=== PATIENT | female | born 1960 | race Caucasian/White ===

== ENCOUNTER 2021-12-29 13:28 | Outpatient (CLI) | payer OTHER, SELFPAY ==
[2021-12-29 18:12] LABS: Albumin* 4.7 g/dL (3.3-5.0); Chloride* 99 mmol/L (96-114)
[2021-12-29 18:13] LABS: Potassium* 4.4 mmol/L (3.6-5.1); Sodium* 138 mmol/L (135-149)
[2021-12-29 18:15] LABS: Alkaline Phosphatase* 122 U/L (40-150); Aspartate Amino Transferase* 35 U/L (12-35); Bilirubin Total* 0.1 mg/dL (0.1-1.5); Blood Urea Nitrogen* 16 mg/dL (7-30); Carbon Dioxide* 24 mmol/L (20-32); Cholesterol* 200 mg/dL (90-199); Creatinine* 0.5 mg/dL (0.5-1.5); Estimated Glomerular Filt Rate 105 ml/min; Total Protein* 7.5 g/dL (6.0-8.3)
[2021-12-29 18:16] LABS: Alanine Aminotransferase* 36 U/L (4-35); Calcium* 9.4 mg/dL (8.4-10.6); Glucose* 174 mg/dL (60-115); HDL Cholesterol* 55 mg/dL (>=50); LDL Cholesterol Calculated 103 mg/dL (<100); Triglycerides* 212 mg/dL (40-149)
[2021-12-29 18:17] LABS: Creatinine Urine 157.3 mg/dL
[2021-12-29 18:41] LABS: Microalbumin Creatinine Ratio 220 mg/g (0-30); Microalbumin Urine 36 mg/dL
== END 2021-12-29 13:29 | disposition home or self-care (01) ==
PROVIDERS: PCP Family Medicine; Visit Provider Family Medicine
DX: E11.9 Type 2 diabetes mellitus without complications (principal); E78.5 Hyperlipidemia, unspecified; I10 Essential (primary) hypertension; R11.0 Nausea
CPT/HCPCS: 80053; 80061; 82043; 82570

== ENCOUNTER 2022-06-04 13:20 | Emergency (ER) | payer OTHER, SELFPAY ==
[2022-06-04 13:41] VITALS: BP 128/66; PULSE 86; RESP 18; TEMP 35.3; O2SAT 94; BMI 36.6
--- NOTE | 2022-06-04 14:00 | ED_ITS ---
HPI - General Adult General Date Seen: 06/04/22 Chief complaint: Neuro Symptoms/Altered Deficit Stated complaint: Both feet itching hasn't slept for 2 days Time Seen by Provider: 06/04/22 13:31 Source: patient Mode of arrival: ambulatory Limitations: no limitations History of Present Illness HPI narrative: Patient is a 61-year-old female who presents here within itching of her feet bilaterally, she has had this now for 2-3 days, she has had this before in the past, this is 1 of the worst times however. The past she has used prednisone which does help calmed down the reaction, she has been unable to sleep for 2-3 days with the itching. She has a history of diabetes, and anxiety. Along with other diagnosis is which are noted in the chart. She denies any fevers chills, dysuria frequency nausea vomiting, weakness, or other neurologic symptoms. Her primary complaint is only the sensory issue. Related Data Home Medications Medication Instructions Recorded Confirmed amlodipine 10 mg tablet 10 mg PO QDAY 12/29/21 01/27/22 atorvastatin 40 mg tablet 40 mg PO QDAY 12/29/21 01/27/22 glimepiride 2 mg tablet 4 mg PO QDAY 12/29/21 01/27/22 omeprazole 20 mg capsule,delayed 20 mg PO QDAY 12/29/21 01/27/22 release potassium chloride 20 mEq 40 meq PO QDAY 12/29/21 01/27/22 tablet,extended release(part/cryst) (Klor-Con M) Diabetic Test Strips 01/05/22 01/27/22 aspirin 81 mg chewable tablet 1 tab PO DAILY 01/05/22 01/27/22 cetirizine 10 mg tablet 10 mg PO BID 01/05/22 01/27/22 efinaconazole 10 % topical topical 01/05/22 01/27/22 solution with applicator Previous Rx's Medication Instructions Recorded losartan 100 mg tablet 100 mg PO QDAY #90 tabs 12/23/21 ondansetron 4 mg disintegrating 4 mg PO Q8H PRN nausea and 12/29/21 tablet vomiting #20 tabs insulin glargine 100 unit/mL (3 20 unit (0.2 mL) subcut .Bedtime 01/27/22 mL) subcutaneous pen #15 mL venlafaxine 150 mg 150 mg PO QDAY #90 caps 01/27/22 capsule,extended release 24 hr metoprolol succinate 200 mg 200 mg PO QDAY #90 tabs 03/02/22 tablet,extended release 24 hr hydrochlorothiazide 25 mg tablet 25 mg PO BID #180 tabs 03/14/22 metformin 500 mg tablet,extended 1,000 mg PO BID #360 tabs 04/24/22 release 24 hr pen needle, diabetic 32 gauge x #100 ea 04/24/22 (BD Ultra-Fine Karina Pen Needle) Allergies Allergy/AdvReac Type Severity Reaction Status Date / Time latex Allergy Verified 06/04/22 13:40 Penicillins Allergy Verified 06/04/22 13:40 Review of Systems Status of ROS: Reports: 10 or more systems reviewed and unremarkable except as noted in History and below PFSH [facility] Medical History Chronic rhinitis Depression DM type 2 (diabetes mellitus, type 2) (~2016) Dyslipidemia Gastroesophageal reflux disease History of hypokalemia Hypertension Irritable bowel syndrome with diarrhea Nausea Pruritus (04/2021) Tremor Surgical History History of 2 sections (1976) Family History Brother Diabetes Stroke Other Lung cancer Social History Narrative: 2 children 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[employer] Walking 3 times weekly non-smoker social drinker 5/week Smoking Status: Former smoker Do you use any of these nicotine containing products: None Second hand tobacco smoke exposure: No How often do you have a drink containing alcohol: 2-3 times a week How many standard drinks containing alcohol do you have on a typical day: 1 or 2 How often do you have six or more drinks on one occasion: Never AUDIT-C Alcohol total score: 3 Non-prescribed substance use: denies use Little interest or pleasure in doing things: nearly every day Feeling down, depressed, or hopeless: nearly every day service: No Exam Narrative: Exam Narrative: I see her in room 4, she is pleasant she is in no apparent distress, she is wearing Birkenstocks, she is able to take these off, her the look normal bilaterally, there is some excoriations on her left rivera, none of them are infected, she moves her toes normally is able to walk normally. Her pulses are normal, on her DP and posterior tibial pulses there is no swelling, maybe a little bit more redness on the right sole than the left, she tells me it moves back and forth. With worsening. He does not go above the level of her mid rivera bilaterally. She has onchogryphosis is mild on large nails bilaterally, and maybe a little bit of dry skin around the heels, with some thickening consistent with a normal callus formation from wearing sandals. Const: Vital Signs, click to edit/add: Vital Signs - 24 hr 06/04/22 13:41 Temperature 95.6 F L Pulse Rate [Pulse Oximeter] 86 Respiratory Rate 18 Blood Pressure [Le ft Upper Arm] 128/66 Pulse Oximetry 94 Oxygen Delivery Me thod Room Air Course Vital Signs Vital signs: Initial Vital Signs Temperature 95.6 F L 06/04/22 13:41 Temperature Source Temporal Artery Scan 06/04/22 13:41 Pulse Rate 86 06/04/22 13:41 Pulse Rhythm 06/04/22 13:41 Respiratory Rate 18 06/04/22 13:41 Blood Pressure 128/66 06/04/22 13:41 Blood Pressure Mean 86 06/04/22 13:41 Blood Pressure Position Sitting 06/04/22 13:41 Pulse Oximetry 94 06/04/22 13:41 Oxygen Delivery Method 06/04/22 13:41 Vital Signs Temperature 95.6 F L 06/04/22 13:41 Pulse Rate 86 06/04/22 13:41 Respiratory Rate 18 06/04/22 13:41 Blood Pressure 128/66 06/04/22 13:41 Pulse Oximetry 94 06/04/22 13:41 Oxygen Delivery Method 06/04/22 13:41 Temperature 95.6 F L 06/04/22 13:41 Pulse Rate 86 06/04/22 13:41 Respiratory Rate 18 06/04/22 13:41 Blood Pressure 128/66 06/04/22 13:41 Pulse Oximetry 94 06/04/22 13:41 Oxygen Delivery Method 06/04/22 13:41 Medical Decision Making MDM Narrative Medical decision making narrative: I explained to her that this is a little bit out of our idalmis here in the ER. I suspect that this is pruritus with the worsening of her diabetic neuropathy, causing it. I am willing to try the prednisone but wanted to know that this in the short term will cause her sugars to bump, especially if she does watch which she eats. I do not see any evidence of infection here, the other option would be gabapentin, bowel those takes a while to work, and may be a reasonable thing to her to take on a follow-up appoint with her primary care physician. She should continue the Benadryl at this point, report back if fevers chills or signs of cellulitis which we discussed or other worsening condition. Discharge Plan Discharge Clinical Impression: Diabetic neuropathy, Pruritus Patient Disposition: Home, Self-Care Condition: Stable Instructions: Itchy Skin (ED) Additional Instructions: I think it is reasonable to try the prednisone as this is worked in the past. I would recommend to follow up with Dr. Dhaliwal within the next 5 days to see if she wants to taper the steroids, the other option is a medication called gabapentin, we sometimes use this for the neuropathy. Is little warn you that the diabetes (glucose levels) will go up, this is only the short-term and long- term issue with the prednisone. I would continue with the Benadryl also, 25-50 mg q.6h. Prescriptions: No Action omeprazole 20 mg capsule,delayed release(DR/EC) 20 mg PO QDAY glimepiride 2 mg tablet 4 mg PO QDAY potassium chloride [Klor-Con M20] 20 mEq tablet,ER particles/crystals 40 meq PO QDAY amlodipine 10 mg tablet 10 mg PO QDAY atorvastatin 40 mg tablet 40 mg PO QDAY ondansetron 4 mg tablet,disintegrating 4 mg PO Q8H PRN (Reason: nausea and vomiting) Qty: 20 0RF insulin glargine 100 unit/mL (3 mL) insulin pen 20 unit subcut .Bedtime Qty: 15 5RF venlafaxine 150 mg capsule,extended release 24hr 150 mg PO QDAY Qty: 90 4RF efinaconazole 10 % solution with applicator topical Rx Instructions: Apply topically to affected area aspirin 81 mg tablet,chewable 1 tab PO DAILY (DME) Diabetic Test Strips Misc See Rx Instructions .Route Rx Instructions: use to check blood glucose 3 times daily cetirizine 10 mg tablet 10 mg PO BID losartan 100 mg tablet 100 mg PO QDAY Qty: 90 1RF metoprolol succinate 200 mg tablet extended release 24 hr 200 mg PO QDAY Qty: 90 1RF hydrochlorothiazide 25 mg tablet 25 mg PO BID Qty: 180 0RF Rx Instructions: Needs appointment for further refills (DME) pen needle, diabetic [BD Ultra-Fine Karina Pen Needle] 32 gauge x 5/32 needle See Rx Instructions .Route Qty: 100 0RF Rx Instructions: Use daily for insulin injections metformin 500 mg tablet extended release 24 hr 1,000 mg PO BID Qty: 360 0RF Follow Up/Referrals: Mckenzie Dhaliwal MD [Primary Care Provider] - Stand Alone Forms: My[facility] Info Instructions
--- NOTE | 2022-06-04 14:12 | ED.NURSE ---
pt given instymeds for prednisone
== END 2022-06-04 14:13 | disposition home or self-care (01) ==
LOC: ED 14:07
PROVIDERS: Emergency Provider Family Medicine; PCP Family Medicine
DX: L29.9 Pruritus, unspecified (principal); E11.21 Type 2 diabetes mellitus with diabetic nephropathy
CPT/HCPCS: 99283

== ENCOUNTER 2022-06-14 08:24 | Outpatient (CLI) | payer OTHER, SELFPAY | END 2022-06-14 08:25 | disposition home or self-care (01) | PROVIDERS: PCP Family Medicine; Visit Provider Family Medicine | DX: E11.9 Type 2 diabetes mellitus without complications (principal); I10 Essential (primary) hypertension; R80.9 Proteinuria, unspecified; E66.9 Obesity, unspecified; E78.5 Hyperlipidemia, unspecified; F32.A Depression, unspecified | CPT/HCPCS: 80053; 80061; 82043; 82570 ==